=== PATIENT | male | born 1990 | race African-American/Black ===

== ENCOUNTER 2022-05-29 22:41 | Emergency (ER) | payer OTHER ==
[~2022-05-29] VITALS: Ht 175.3 cm; Wt 99.8 kg
== END 2022-05-30 05:21 | disposition home or self-care (01) ==
LOC: ER 22:41
DX: F12.129 Cannabis abuse with intoxication, unspecified (principal); T40.715A Adverse effect of cannabis, initial encounter; Y92.89 Other specified places as the place of occurrence of the external cause